=== PATIENT | female | born 1940 | race Caucasian/White ===

== ENCOUNTER → 2021-06-06 | Outpatient (CLI) | payer MEDICARE, OTHER | LOC: EXRD 09:48 | DX: M25.561 Pain in right knee (principal) | CPT/HCPCS: 73564 ==

== ENCOUNTER → 2021-06-13 | Outpatient (CLI) | payer MEDICARE, OTHER | LOC: EXRD 15:23 | DX: M79.604 Pain in right leg (principal) | CPT/HCPCS: 73590 ==

== ENCOUNTER 2021-08-21 16:30 | Emergency (ER) | payer MEDICARE, OTHER ==
[2021-08-21] MEDS ORDERED: HYDROCODONE-AC1 EACH PO ×5 (18:27→18:41)
== END 2021-08-21 18:05 | disposition home or self-care (01) ==
LOC: ER1 16:30
DX: S52.572A Other intraarticular fracture of lower end of left radius, initial encounter for closed fracture (principal); I10 Essential (primary) hypertension; E11.9 Type 2 diabetes mellitus without complications; W19.XXXA Unspecified fall, initial encounter; Y92.009 Unspecified place in unspecified non-institutional (private) residence as the place of occurrence of the external cause
CPT/HCPCS: 25505; 73110; 96374; 99283; J1170

== ENCOUNTER → 2021-08-27 | Day surgery (SDC) | payer MEDICARE, OTHER ==
[~2021-08-27] VITALS: Ht 160 cm; Wt 64.4 kg
[~2021-08-27] MED LIST: BENICAR20 MG PO; HYDROCODONE-AC1 EACH PO; METFORMIN HCL500 MG PO; VITAMIN D325 MCG PO
[2021-08-27 11:44] LABS: HEMOGLOBIN 13.6 gm/dl (12.3-15.3); RED BLOOD COUNT 4.45 M/UL (4.00-5.10); WHITE BLOOD COUNT 11.1 K/UL (4.5-11.0)
[2021-08-27 12:02] LABS: BUN/CREATININE RATIO 24 (0-10)
== END | disposition home or self-care (01) ==
LOC: OR 07:45
PROVIDERS: Orthopaedic Surgery
DX: S52.552A Other extraarticular fracture of lower end of left radius, initial encounter for closed fracture (principal); E11.22 Type 2 diabetes mellitus with diabetic chronic kidney disease; I12.9 Hypertensive chronic kidney disease with stage 1 through stage 4 chronic kidney disease, or unspecified chronic kidney disease; N18.30 Chronic kidney disease, stage 3 unspecified; W07.XXXA Fall from chair, initial encounter; Y92.009 Unspecified place in unspecified non-institutional (private) residence as the place of occurrence of the external cause; Z20.822 Contact with and (suspected) exposure to COVID-19
CPT/HCPCS: 36415; 73110; 76000; 80048; 82962; 83036; 85027; 93005; C1713; J0690; J1100; J2001; J2405; J2704; J2795; J3010; J7030; J7120; U0002

== ENCOUNTER → 2021-09-25 | Outpatient (CLI) | payer MEDICARE, OTHER ==
[~2021-09-25] VITALS: Ht 160 cm; Wt 64.0 kg
== END ==
LOC: ER1 08:29 → EDSTATUS 14:24 → EROP 14:32
DX: U07.1 COVID-19 (principal); Z23 Encounter for immunization
CPT/HCPCS: 96365; M0243; Q0244

== ENCOUNTER → 2022-03-05 | Outpatient (CLI) | payer MEDICARE, OTHER | LOC: EXRD 02-26 13:45 | DX: M81.0 Age-related osteoporosis without current pathological fracture (principal); E04.2 Nontoxic multinodular goiter | CPT/HCPCS: 76536 ==

== ENCOUNTER → 2022-04-16 | Outpatient (CLI) | payer MEDICARE, OTHER | LOC: EXRD 11:19 | DX: Z13.820 Encounter for screening for osteoporosis (principal); Z78.0 Asymptomatic menopausal state | CPT/HCPCS: 77080 ==